=== PATIENT | male | born 1950 | race Caucasian/White ===

== ENCOUNTER 2024-06-30 06:58 | Day surgery (SDC) | payer OTHER, SELFPAY ==
[2024-06-30] VITALS (9 sets, daily range): BP systolic 129–183; BP diastolic 82–104; BMI 28.5
[2024-06-30 07:48] LABS: Glucose - Point of Care 155 mg/dl (70-99)
[2024-06-30] MEDS: NSS 255 ML IV (07:50)
--- NOTE | 2024-06-30 09:04 | ITS.CL.PN ---
[employer] - Procedure Note
Procedure
Procedure Note:
WATCHMAN LEFT ATRIAL APPENDAGE OCCLUSION REPORT
Date of Procedure: 06/30/24
Referring: Dr. Kai Maier
Indication: Afib with high bleeding risk and high stroke risk
Operators: Kendell Faulkner MD, PhD (interventional cardiology); Kali Singh MD (electrophysiology); Stevie Arenas MD (cardiac imaging)
Anesthesia: general anesthesia provided by the anesthesia staff
PROCEDURE: left atrial appendage occlusion with a 24 mm Watchman FLX
ACCESS:
1. 14F right common femoral vein (closure: figure of eight stitch)
HEMODYNAMIC DATA
LA 12 mmHg
PROCEDURE NARRATIVE:
The patient was intubated and sedated by anesthesiology and then prepped and draped in standard sterile fashion. A NOEL probe was placed by cardiology and imaging performed demonstrating no left atrial appendage thrombus and no pericardial effusion.
Under ultrasound guidance, the right femoral vein was accessed with an 8F sheath placed. Heparin was administered to achieve ACT>300.
The 8F sheath was exchanged over a Cigital RF wire for the Watchman double curve sheath which was advanced to the SVC. The Watchman sheath was then pulled back under fluoroscopic and echo guidance until an appropriate inferior and posterior position
on the septum was achieved. During brief RF application, the wire was advanced through the interatrial septum into the left atrium. The wire was placed in the left upper pulmonary vein as confirmed by fluoroscopy and NOEL. The dilator and sheath
easily tracked across the septum allowing placement of the sheath in the left atrium. Left atrial pressure was measured at 12 mmHg.
A 5F pigtail catheter was advanced through the sheath and placed in the left atrial appendage, and an appendage gram was performed demonstrating anatomy suitable for a 24 mm Watchman FLX device. The device was prepped on the back table, the pigtail
catheter removed, and the device delivered via the sheath to the left atrial appendage. The device was deployed slowly under continuous fluoroscopic and NOEL visualization. After deployment, NOEL imaging was performed to assess PASS criteria. The
device demonstrated excellent positioning, anchor stability on tug test, appropriate sizing with 13-19% compression, and appropriate seal with no leak at 0, 45, 90, or 135 degrees. Given PASS criteria were met, the device was then released.
The delivery system retracted back into the sheath and removed from the body. The sheath was retracted into the right atrium with NOEL demonstrating no significant R-L shunt and pericardial effusion. The sheath was removed and the venotomy closed
with [id number] knot. The patient was extubated and tolerated the procedure well.
CONCLUSIONS
1. transseptal puncture with NOEL guidance
2. successful deployment of a 24 mm Watchman FLX device under fluoroscopic and NOEL guidance
RECOMMENDATIONS:
1. anticoagulation with Eliquis until repeat NOEL in 3 months
Copy to: Dr. Kai Maier MD (hospital personnel director); JAMIE Wilkerson (PCP)
Signed: Kendell Faulkner MD, PhD
--- NOTE | 2024-06-30 09:54 | ITS.CL.PN ---
Addendum entered and electronically signed by Kendell Faulkner MD 06/30/24 11:45:
15 minutes of procedural sedation was utilized. An independent medical investigator was present to assist with and help manage the patient's level of consciousness and physiologic status.
Original Note:
[employer] - Procedure Note
Procedure
Procedure Note:
CARDIAC CATHETERIZATION REPORT
Date of Procedure: 06/30/2024
Referring: Dr. Magdi Hinton MD
Indication: Anginal chest pain
PROCEDURE(S)
1. left heart catheterization
2. coronary angiography
3. ultrasound guided vascular access
4. moderate sedation, initial 15 minutes
ACCESS: 6F right radial artery (closure: radial band)
CATHETERS
1. 6F JR4
2. 6F JL3.5
HEMODYNAMIC DATA
LV 149/8 (EDP 13) mmHg
AO 142/84 (mean 113) mmHg
CORONARY ANGIOGRAPHY
Dominance: right
LM: large and normal
LAD: large vessel giving rise to a large D1 and small D2. There is a patent stent in the proximal aspect of D1 and otherwise mild luminal irregularities.
LCx: large vessel giving rise to a large OM1, large OM2, and large OM3. There is a patent stent in the OM3 and otherwise mild luminal irregularities.
RCA: large ectatic vessel giving rise to a large RPDA, moderate caliber RPL1, and moderate caliber RPL2. There is mild nonobstructive disease.
RADIATION: dose 352 mGy; DAP 26 point Gy*cm2; fluoroscopy time 6.3 min
CONCLUSIONS
1. nonobstructive coronary artery disease in a right dominant system with patent prior stents
2. mildly elevated LV filling pressure and no aortic stenosis on hemodynamic pullback
RECOMMENDATIONS
1. expectant management after cardiac catheterization via right radial approach
2. aggressive secondary prevention of coronary artery disease
Copy to: Dr. Magdi Hinton MD (locker room clerk); Dr. Deanna Anders MD (PCP)
Signed: Kendell Faulkner MD, PhD
== END 2024-06-30 12:45 | disposition home or self-care (01) ==
LOC: CATH 06:58
PROVIDERS: ATTENDING PHYSICIAN Student in an Organized Health Care Education/Training Program; FAMILY PHYSICIAN Internal Medicine; OTHER PHYSICIAN Internal Medicine Cardiovascular Disease
DX: I25.119 Atherosclerotic heart disease of native coronary artery with unspecified angina pectoris (principal); Z79.82 Long term (current) use of aspirin; Z79.84 Long term (current) use of oral hypoglycemic drugs
CPT/HCPCS: 82962; 93458; 99152; C1894; Q9967